=== PATIENT | female | born 1985 | race Caucasian/White ===

== ENCOUNTER → 2016-10-21 | Day surgery (SDC) | payer OTHER ==
[~2016-10-21] VITALS: Ht 165.1 cm; Wt 138.4 kg
[~2016-10-21] MED LIST: ADVIL200 MG PO; AZO URINARY P97.5 MG; BACLOFEN20 MG PO; COLACE100 MG PO; DIAMOX SEQUE500 MG PO; DIAMOX250 MG PO; DITROPAN XL5 MG PO; FLOMAX0.4 MG PO; LIDOCAINE; MAGNESIUM500 MG PO; NORCO 5-325 TA1 EACH PO; TOPAMAX50 MG PO; TRINTELLIX 10 PO; ULTRAM50 MG PO; UROCIT-K 10ME1080 MG PO; VERAPAMIL ER120 M1 PO; VITAMIN B-121000 MCG PO; ZOFRAN4 MG PO
--- NOTE | ~2016-10-21 | HP ---
PATIENT'S NAME: GONZALEZ MACIAS [facility] AGE: 31 Y [address] ROOM: [place] [address] LOCATION: [facility] [place] ADMIT DATE: 10/21/2016 History & Physical DISCHARGE DATE: FAMILY PHYSICIAN: Shane Wheeler MD ATTENDING PHYSICIAN: DONTE ESTRELLA DATE OF SERVICE: CHIEF COMPLAINT: Left flank pain. HISTORY OF PRESENT ILLNESS: The patient is a pleasant, 31-year-old female who had initially presented to her primary care provider on October 17, 2016, with complaints of left flank pain. She had a white blood cell count which was normal at 9.7, and serum creatinine level of 0.95. A urine culture ultimately was not impressive with probable contamination, growing 8000 colony-forming units/mL of gram-positive colonies. She was discharged home from clinic by her primary care provider on some tamsulosin 0.4 mg daily and tramadol for pain. She was also instructed to drink plenty of fluids and to strain her urine. She continued to have severe pain over the following several days, and her primary care provider then obtained a CT scan of her abdomen and pelvis on October 20, 2016, with findings consistent with a 6 x 6 mm calculus at her proximal ureter consistent with a left ureteropelvic junction stone with some mild hydronephrosis. She otherwise has denied any fevers or chills. She does have a history of recurrent urinary tract infection. The patient was not doing well with a trial of stone passage and opted for intervention. PAST MEDICAL HISTORY: 1. History of recurrent urinary tract infections. 2. Depression. 3. Pseudotumor cerebri history. PAST SURGICAL HISTORY: Denies any significant past medical surgeries. FAMILY HISTORY: The patient denies any known family history of genitourinary abnormalities. SOCIAL HISTORY: The patient is a current tobacco user and caffeine user. She is a former drinker. ALLERGIES: NO KNOWN DRUG ALLERGIES. PATIENT'S NAME: GONZALEZ MACIAS [facility] AGE: 31 Y [address] ROOM: [place] [address] LOCATION: [facility] [place] ADMIT DATE: 10/21/2016 History & Physical DISCHARGE DATE: FAMILY PHYSICIAN: Shane Wheeler MD ATTENDING PHYSICIAN: DELORES,DONTE MEDICATIONS: See hospitalization medication reconciliation. REVIEW OF SYSTEMS: A full 12-iqce-xsmul review of systems was performed with pertinent positive and negative findings included in the History of Present Illness. All other systems were reviewed and were otherwise negative. PHYSICAL EXAMINATION: VITAL SIGNS: Stable. CONSTITUTIONAL: No acute distress. The patient is awake and oriented. HEENT: Extraocular muscles intact. Mucous membranes moist. No drainage per ears and nose. CARDIAC: Good peripheral perfusion. RESPIRATORY: No audible wheezing or stridor. ABDOMEN: Soft, nontender, and nondistended. MUSCULOSKELETAL: Moves all extremities. NEUROLOGIC: No focal deficits noted. PSYCHIATRIC: Normal affect, and answers questions appropriately. HEMATOLOGIC: No bruising or active sites of bleeding. IMAGING: I personally reviewed her images consistent with findings noted above in the History of Present Illness from her recent CT scan. IMPRESSION: Left proximal ureteropelvic junction obstructing stone. PLAN: I had a long discussion today with the patient regarding her options including observation, trial of stone passage, and intervention. She has not been doing well with the trial of stone passage and is wanting to intervene. We discussed her treatment options for a proximal ureteral calculus including cystoscopy with stent placement, ureteroscopy with laser lithotripsy, and extracorporeal shockwave lithotripsy. The patient wanted to proceed with extracorporeal shockwave lithotripsy, and I recommended placement of concurrent indwelling ureteral stent with possible stone manipulation. We discussed the risks, benefits, indications, and alternatives to the above procedure, and the patient wished to proceed and consented freely. DONTE ESTRELLA MD PATIENT'S NAME: GONZALEZ MACIAS [facility] AGE: 31 Y [address] ROOM: [place] [address] LOCATION: [facility] [place] ADMIT DATE: 10/21/2016 History & Physical DISCHARGE DATE: FAMILY PHYSICIAN: Shane Wheeler MD ATTENDING PHYSICIAN: DONTE ESTRELLA GP/modl /[id number] D: [id number] T: [id number] HISTORY & PHYSICAL
--- NOTE | ~2016-10-21 | OR ---
PATIENT'S NAME: GONZALEZ MACIAS [facility] AGE: 31 Y [address] ROOM: [place] [address] LOCATION: [facility] [place] ADMIT DATE: 10/21/2016 OR/Procedure Report DISCHARGE DATE: FAMILY PHYSICIAN: Shane Wheeler MD ATTENDING PHYSICIAN: DONTE STEVENSON SURGEON: Donte Stevenson MD PRINCIPAL ELECTRICAL ENGINEER: None. DATE OF PROCEDURE: 10/21/2016 PREOPERATIVE DIAGNOSIS: Left proximal ureteral calculus. POSTOPERATIVE DIAGNOSIS: Left proximal ureteral calculus. PROCEDURES PERFORMED: 1. Cystoscopy with placement of indwelling left ureteral stent. 2. Left extracorporeal shock-wave lithotripsy. ANESTHESIA ADMINISTERED: General endotracheal anesthesia. INDICATIONS FOR PROCEDURE: The patient is a pleasant, 31-year-old female with no prior history of nephrolithiasis, who had presented recently with left flank pain and was found to have a 6-mm proximal left ureteral calculus with associated hydronephrosis. She was not doing well with a trial of stone passage and opted to undergo intervention. She was explained the risks, benefits, indications, and alternatives to the above procedure and wished to proceed and consented freely. DESCRIPTION OF OPERATION: The patient was brought back to the operating room, where she was placed on the OR table in the supine position. Of note, on initial administration of Levaquin antibiotic, she began having reported reaction with some flushing and shortness of breath so the Levaquin administration was stopped. We then switched her to a different antibiotic with a cephalosporin antibiotic. After the patient was placed on the OR table in the supine position, a surgical time-out was called where patient identification, surgical site, and procedure were then verified. The patient then underwent successful administration of general endotracheal anesthesia. Of note, the patient did have some difficulty initially following intubation thought to be secondary to a bronchospasm per Anesthesia team. She was clinically stable and we elected to proceed with the procedure as her saturations were doing well and she was doing well on the ventilator. The patient was then moved and placed in a low lithotomy position where her genital area was then prepped and draped in the usual sterile fashion. I began by carefully advancing the rigid cystoscope easily into the patient's urinary bladder. Her urethra was within normal limits. Upon entering to her bladder, a full euceda cystoscopy was performed. Her bladder was negative for PATIENT'S NAME: GONZALEZ MACIAS [facility] AGE: 31 Y [address] ROOM: [place] [address] LOCATION: [facility] [place] ADMIT DATE: 10/21/2016 OR/Procedure Report DISCHARGE DATE: FAMILY PHYSICIAN: Shane Wheeler MD ATTENDING PHYSICIAN: DONTE STEVENSON any bladder tumors, cellules, or diverticula. Her ureteral orifices were noted to be in their orthotopic location. I then carefully advanced a guidewire up the patient's left ureter. Of note, the proximal ureteral stone did appear to be quite radiolucent and that we were having some difficulty with accurately visualizing the stone, and upon placement of the wire, I was not confident that we manipulated the stone, and despite flushing with a #5- Faroese open-ended ureteral catheter, I did believe that the stone was still in place at her left proximal ureter at the ureteropelvic junction. As I was having some difficulty in visualizing the stone, but it did appear somewhat faint still at her ureteropelvic junction, I did not continue to try to manipulate the stone, but rather leave it in place at her left proximal ureter and over the wire, placed a 4.8-Faroese multi-length ureteral stent deploying it, noting a good curl fluoroscopically in the patient's left renal collecting system as well as a good curl visually in the patient's bladder. I then emptied the patient's bladder. The patient was then transferred over to the recovery bed where she was then moved over to the lithotripsy treatment bed, where she was placed in the supine position. We then brought the stone into focal point using fluoroscopy and began performing shock-wave lithotripsy starting at 14 kilovolts and working up sequentially to 24 kilovolts in energy. Approximately, 1800 shocks were delivered to the faint calcification located along her proximal ureter and it was difficult to tell if we had nice fragmentation as the stone was quite radiolucent. There did also appear to be a possible calcification located along the proximal curl of the indwelling ureteral stent. We then delivered another 1200 shocks in this area. The patient did tolerate the procedure well. The patient was then awoken from general anesthesia, where she was then extubated and transferred to the recovery bed, and transported to the recovery room in good condition. COMPLICATIONS: None. DRAINS: Indwelling 4.8-Faroese multi-length left ureteral stent. SPECIMENS: None. ESTIMATED BLOOD LOSS: Minimal. FOLLOWUP PLAN: Given the more radiolucent nature of the stone, we will plan to have her undergo a CT scan rather than a plain film KUB in 3 weeks to evaluate for any residual fragments remaining and to determine if we can go ahead and remove the stent at that time. As this is her first stone episode, we will also debt counselor the patient on stone prevention moving forward at her followup visit. PATIENT'S NAME: GONZALEZ MACIAS [facility] AGE: 31 Y [address] ROOM: [place] [address] LOCATION: [facility] [place] ADMIT DATE: 10/21/2016 OR/Procedure Report DISCHARGE DATE: FAMILY PHYSICIAN: Shane Wheeler MD ATTENDING PHYSICIAN: DONTE STEVENSON DONTE STEVENSON MD GP/modl /[id number] CC: Shane Wheeler MD d: 10/21/16 1856 t: 10/29/16 0833, OPERATIVE SUMMARY
--- NOTE | ~2016-10-21 | OR ---
PATIENT'S NAME: GONZALEZ MACIAS [facility] AGE: 31 Y [address] ROOM: [place] [address] LOCATION: [facility] [place] ADMIT DATE: 10/21/2016 OR/Procedure Report DISCHARGE DATE: FAMILY PHYSICIAN: Shane Wheeler MD ATTENDING PHYSICIAN: DONTE STEVENSON SURGEON: Fish Clifton CRNA CHEMICAL SALES REPRESENTATIVE: DATE OF PROCEDURE: 10/21/2016 ADDENDUM: This is Anesthesia addendum to Anesthesia record. This is a 31-year-old female who presented for an cysto stent placement on the 21 of October. The patient was given Levaquin preoperatively upon which circumoral numbness and tingling was noted. The nurse was alerted to this, and the Levaquin was stopped at approximately 0805 hours. It was initially delivered at 0758 hours. At which time, anesthesia was notified. I then discussed this with Dr. Stevenson, symptoms were resolving, and the decision was made with Dr. Stevenson to come back to the OR, and deliver Ancef instead of the Levaquin. The patient presented to the OR at 0816 hours in the morning. She was moved over to the cysto table. Her symptoms were resolving, some flushness in her cheeks was noted. She did note that her throat still felt funny, but noted that she was getting better. A general anesthetic was our plan for the day and induction was started. Upon induction, her hemodynamic profile was unchanged from preop. She was pre-oxygenated in a normal fashion. She was given propofol, succinylcholine, and fentanyl upon induction. She had an easy DL x1 and there was a grade 1 view. Upon placement of the tube and bag ventilation, it was noted 0 for end-tidal CO2 at which time, I removed the tube and replaced it. So DL #2 again grade 1 view the tube was clasped between the cords easily. The balloon was inflated again upon ventilation, 0 end-tidal CO2 was noted. Lung sounds were assessed and were negative. Negative sounds over the abdomen. The tube was then removed, an additional time while the patient was ventilated with an oral airway, again a very little air movement, but hemodynamics remained unchanged, and saturations were above 90 during this process. A third DL was then done, again a grade 1 view. The tube was placed through the cords without difficulty. The balloon was inflated. Ventilation was attempted again with some notation of spontaneous ventilation by the patient at this point, saturations again remained at 90 or above. End-tidal CO2 on the third attempt was noted to be in the mid 40s at this point. Upon DL #2, I had asked for help to come to the room at which time, Dr. Lomax and Ever Escalante CRNA arrived. A metered-dose inhaler was given during the hand ventilation, 5 puffs were delivered as well as 8 mg of Decadron. Upon the third DL, it was noted to proceed based on hemodynamics and saturations by Dr. Lomax as well as Dr. Stevenson. The case went uneventfully. The patient's saturations again remained in the upper 90s. Hemodynamics remained unchanged throughout PATIENT'S NAME: GONZALEZ MACIAS [facility] AGE: 31 Y [address] ROOM: [place] [address] LOCATION: [facility] [place] ADMIT DATE: 10/21/2016 OR/Procedure Report DISCHARGE DATE: FAMILY PHYSICIAN: Shane Wheeler MD ATTENDING PHYSICIAN: DONTE STEVENSON the case. Upon completion of the case, the cuff was let down slowly. There was audible air exchange noted around the tube. The patient was awake, following commands, and was extubated and taken to the PACU awake, alert, and oriented. The patient tolerated this procedure well. No further interventions were noted. It will be noted on the patient's chart that Levaquin is an allergy, we are questioning whether anaphylaxis to this. CRISTINO VELIZ/modl /[id number] d: 10/21/16 1406 t: 10/28/16 0833, OPERATIVE SUMMARY
== END ==
LOC: GPOC 10-20 16:00 → GSDC 07:05
PROC: 0TF4XZZ Fragmentation in Left Kidney Pelvis, External Approach (ICD-10-PCS; principal; 2016-10-21)
PROC: 0T778DZ Dilation of Left Ureter with Intraluminal Device, Via Natural or Artificial Opening Endoscopic (ICD-10-PCS; 2016-10-21)
DX: N13.2 Hydronephrosis with renal and ureteral calculous obstruction (principal); F32.9 Major depressive disorder, single episode, unspecified; F17.200 Nicotine dependence, unspecified, uncomplicated; Z98.890 Other specified postprocedural states; Z79.899 Other long term (current) drug therapy; Z79.891 Long term (current) use of opiate analgesic
CPT/HCPCS: C1769; C2617; J0690; J1885; J1956; J2001; J2405; J2550; J7120

== ENCOUNTER → 2016-10-28 | Outpatient (CLI) | payer OTHER | END | disposition disaster alternative care site (69) | LOC: GRAD 16:00 | DX: N20.0 Calculus of kidney (principal); Z96.0 Presence of urogenital implants ==

== ENCOUNTER → 2016-10-29 | Outpatient (CLI) | payer OTHER | END | disposition disaster alternative care site (69) | LOC: GRAD 11:30 | DX: N20.0 Calculus of kidney (principal); Z94.0 Kidney transplant status; Z96.0 Presence of urogenital implants ==

== ENCOUNTER 2016-10-30 16:05 | Emergency (ER) | payer OTHER ==
--- NOTE | ~2016-10-30 | ER ---
PATIENT'S NAME: GONZALEZ ERICKSON [facility] AGE: 31 Y [address] ROOM: [place] [address] LOCATION: ED ADMIT DATE: 10/30/2016 ER/Outpatient Report DISCHARGE DATE: 10/30/2016 FAMILY PHYSICIAN: Shane Wheeler MD ATTENDING PHYSICIAN: Selvin Clay CHIEF COMPLAINT: Difficulty breathing and tightness in the chest. HISTORY OF PRESENT ILLNESS: Ms. Erickson presents by private vehicle for evaluation of shortness of breath. She states that she was [facility]. She received levofloxacin. Shortly after that, she began to feel heaviness and tightness in the chest. She states that she has only ever felt this way after receiving the same medication approximately 1 week prior when they placed the stent. She is denying difficulty breathing, coughing, wheezing, or swelling of the face or tongue. She has not tried anything for this before. PAST MEDICAL HISTORY: Documented on the record and reviewed by me. SOCIAL HISTORY: Documented on the record and reviewed by me. MEDICATIONS: Documented on the record and reviewed by me. ALLERGIES: DOCUMENTED ON THE RECORD AND REVIEWED BY ME. REVIEW OF SYSTEMS: All systems are reviewed and negative except as noted in the HPI. PHYSICAL EXAMINATION: VITAL SIGNS: Blood pressure 141/97, pulse 102, respiratory rate 24, temp 98.5, and SpO2 is 92% on room air. GENERAL: An age-appropriate female sitting upright on the exam table in no apparent pain or distress with concerned look. NEUROLOGIC: Awake and alert. GCS is 15. No focal deficits. No asymmetry. HEENT: Normocephalic, atraumatic. Eyes are PERRL. Oropharynx is clear. No edema. NECK: Supple. No stridor. Trachea is midline. CHEST: Heart is regular rate and rhythm in the borderline tachycardia. No murmurs. PATIENT'S NAME: GONZALEZ ERICKSON [facility] AGE: 31 Y [address] ROOM: [place] [address] LOCATION: [facility] ADMIT DATE: 10/30/2016 ER/Outpatient Report DISCHARGE DATE: 10/30/2016 FAMILY PHYSICIAN: Shane Wheeler MD ATTENDING PHYSICIAN: Selvin Clay LUNGS: Clear to auscultation in all lung ortiz. No rhonchi, wheezes, or rales. ABDOMEN: Soft, nontender, and nondistended. BACK: Normal to inspection and palpation. EXTREMITIES: Warm and well-perfused. No obvious abnormalities. SKIN: Without rashes. LABS AND X-RAYS: None. IMPRESSION: Possible allergic reaction versus anaphylactoid reaction to levofloxacin. EMERGENCY DEPARTMENT COURSE: The patient was seen and evaluated as above. She is evaluated for over an hour in the ER. There was no evidence of systemic anaphylaxis. She was given Benadryl, famotidine, and steroids. She had improvement in her symptoms and had no relapse. She has no evidence of anaphylaxis at this time. Recommend Benadryl if needed. We will add levofloxacin to allergy list. All questions were answered and the patient was discharged in good condition with no worsening of symptoms. MD GUME NERI/adriano /[id number] d: 10/31/16 0157 t: 11/08/16 0722, OUTPATIENT REPORT
== END 2016-10-30 17:20 | disposition disaster alternative care site (69) ==
LOC: GMED 16:05
DX: R07.89 Other chest pain (principal); R06.02 Shortness of breath; Z88.1 Allergy status to other antibiotic agents; Z79.899 Other long term (current) drug therapy; Z87.442 Personal history of urinary calculi
CPT/HCPCS: J1200; J2930